=== PATIENT | female | born 1950 | race Caucasian/White ===

== ENCOUNTER 2019-04-05 21:59 | Inpatient (IN) | payer MEDICARE, MEDICAID ==
[~2019-04-05] VITALS: Ht 157.5 cm; Wt 75.3 kg
--- NOTE | 2019-04-05 22:19 | NUR ---
PT WAS BIB [facility] PET TEAM FOR AGGRESSIVE BEHAVIOR AND S/I, PT IS ON A 5150 HOLD. ALL BELONGINGS KEPT IN LOCKER FOR SAFETY, VSS, NAD NOTED, PENDING MD FLOWERS
[2019-04-05 22:39] LABS: BASOPHILS # (AUTO) 0.1 /CMM (0.0-0.2); BASOPHILS % (AUTO) 0.6 % (0.0-2.0); EOSINOPHILS % (AUTO) 0.3 % (0.0-6.0); HEMATOCRIT 39 % (33-45); HEMOGLOBIN 13.1 g/dL (11.5-14.8); LYMPHOCYTES # (AUTO) 1.7 /CMM (0.8-4.8); LYMPHOCYTES % (AUTO) 19.2 % (20.0-44.0); MEAN CORPUSCULAR HGB CONC 34 g/dl (31.0-36.0); MEAN CORPUSCULAR VOLUME 86 fL (82-100); MONOCYTES # (AUTO) 0.9 /CMM (0.1-1.30); MONOCYTES % (AUTO) 10.1 % (2.0-12.0); NEUTROPHILS # (AUTO) 6.2 /CMM (1.8-8.9); NEUTROPHILS % (AUTO) 69.8 % (43.0-81.0); PLATELET COUNT (AUTO) 184 /CMM (150-450); RED BLOOD CELL COUNT(AUTO) 4.52 MIL/uL (4.0-5.2); WHITE BLOOD COUNT (AUTO) 8.9 K/uL (4.3-11.0)
[2019-04-05 22:48] LABS: CALCIUM, SERUM 9.8 mg/dL (8.5-10.1); CARBON DIOXIDE 28 mmol/L (21-32); CHLORIDE 106 mmol/L (98-107); CREATININE 0.8 mg/dL (0.6-1.3); GLUCOSE 136 mg/dL (74-106); POTASSIUM 3.5 mmol/L (3.5-5.1); SODIUM SERUM 139 mmol/L (136-145); UREA NITROGEN, BLOOD 18 mg/dL (7-18)
[2019-04-05 22:54] LABS: ALANINE AMINOTRANSFERASE 19 U/L (12-78); ALBUMIN 3.6 g/dL (3.4-5.0); ALCOHOL, BLOOD < 3 mg/dL (0-0); ALKALINE PHOSPHATASE 73 U/L (46-116); ASPARTATE AMINOTRANSFERASE 23 U/L (15-37); BILIRUBIN,DIRECT 0.1 mg/dL (0.0-0.2); BILIRUBIN,TOTAL 0.3 mg/dL (0.2-1.0); SALICYLATE 4.8 mg/dL (2.8-20.0); TOTAL PROTEIN, SERUM 6.9 g/dL (6.4-8.2)
[2019-04-05 22:55] LABS: ACETAMINOPHEN 0 ug/ml (10-30)
--- NOTE | 2019-04-05 22:57 | NUR ---
URINE COLLECTED AND SENT TO THE LAB
[2019-04-05 23:00] LABS: APPEARANCE,URINE Clear (CLEAR); BILIRUBIN,URINE Negative (NEGATIVE); BLOOD, URINE Trace-lysed Ery/uL (NEGATIVE); COLOR,URINE Yellow (YELLOW); KETONES,URINE Negative (NEGATIVE); LEUKOCYTE ESTERASE ,URINE Negative (NEGATIVE); NITRITE, URINE Negative (NEGATIVE); PROTEIN,URINE Negative (NEGATIVE); UGLUCOSE Negative (NEGATIVE); UROBILINOGEN,URINE 0.2 EU/dL (0.2)
[2019-04-05 23:13] LABS: BACTERIA,URINE None seen /HPF (None Seen); RBC,URINE 0-2 /HPF (0-2); SQUAMOUS EPITHELIAL CELL,UR Few /HPF (None Seen); WBC,URINE 0-2 /HPF (0-3)
[2019-04-05] MEDS ORDERED: DIAZEPAM 5 MG TABLET ONE (23:43)
--- NOTE | 2019-04-05 23:52 | NUR ---
REPORT GIVEN TO NOVEM RN FOR EULALIO PT WILL BE TRANSPORTED TO GPS
[2019-04-06] MEDS ORDERED: DIAZEPAM 5 MG TABLET PO PRN
--- NOTE | 2019-04-06 00:15 | NUR ---
GPS ADMISSION NOTES: ADMITTED A 69-YR OLD FEMALE, PATIENT IS HOMELESS, ON 5150 FOR DTS/DTO. PER HOLD, PATIENT STATED SHE HAS HOMICIDAL IDEATIONS AND IS ALSO SUICIDAL SCREAMING AT DEPUTIES TO SHOOT HER. UPON FACE TO FACE ASSESSMENT, PATIENT IS ALERT AND ORIENTED X2, ANXIOUS, IRRITABLE, ANGRY, UNCOOPERATIVE, LOUD, EASILY GETS AGITATED AND SARCASTIC. VERBALIZATION OF FEELING ENCOURAGED. PT. WAS ADVISED OF THE HOLD. PT'S RIGHTS DISCUSSED GUIDE TO PRESCRIPTION MEDICATIONS PROVIDED. IN NO APPARENT DISTRESS NOTED. PATIENT REFUSED TO SIGN ADMISSION CONSENTS PT. STATED I'M EXHAUSTED I HAVE DONE TOO MUCH FOR TODAY. BELONGINGS WERE INVENTORIED AND CHECKED FOR CONTRABAND. PT IS UNDER THE PSYCHIATRIC CARE OF DR. DEN BRENNER, AND UNDER THE MEDICAL CARE OF DR. LR. SKIN BODY ASSESSMENT PERFORMED SKIN INTACT. BED LOCKED AND PLACED IN LOWEST POSITION. FALL PRECAUTIONS IN PLACE. WILL CONTINUE TO MONITOR Q15 MIN ROUNDS FOR SAFETY AND BEHAVIOR. NO FAMILY TO NOTIFY. Addendum: 04/06/19 at 0331 by DOYLE FREY RN PATIENT REFUSED TO HAVE HER BLOOD SUGAR AND VITAL SIGNS CHECK. DESPITE OF EXPLANATION RISKS AND BENEFITS BUT PATIENT STILL REFUSED.
[2019-04-06] MEDS ORDERED: MAGNESIUM HYDROXIDE 30 ML UDC PO PRN (00:30)
[2019-04-06] MEDS ORDERED: MAG HYDROX/AL HYDROX/SIMETH 30 ML UDC PO PRN (00:30)
[2019-04-06] MEDS ORDERED: ACETAMINOPHEN 325 MG TABLET PO PRN (00:30)
[2019-04-06] MEDS ORDERED: TEMAZEPAM 7.5 MG CAPSULE PO PRN (00:30)
[2019-04-06] MEDS ORDERED: BLOOD SUGAR DIAGNOSTIC 1 EACH STRIP IN ONE (00:30)
[2019-04-06] MEDS ORDERED: DULO60CA45 PO (03:43)
[2019-04-06] MEDS ORDERED: METF-440 PO (03:43)
[2019-04-06] MEDS ORDERED: IBUP-1957 PO (03:43)
[2019-04-06] MEDS ORDERED: MELO-107 PO (03:43)
[2019-04-06] MEDS ORDERED: TRAM50TA2 PO (03:43)
[2019-04-06] MEDS ORDERED: QUET50TA PO (03:43)
[2019-04-06] MEDS ORDERED: ESTR0.9T2 PO (03:43)
[2019-04-06] MEDS ORDERED: ATOR40TA PO (03:43)
--- NOTE | 2019-04-06 05:46 | NUR ---
GPS-RN PATIENT REFUSED MRSA SWAB DESPITE OF EDUCATION PROVIDED. PATIENT STILL REFUSED. WILL ENDORSE TO THE DAY SHIFT NURSE FOR CONTINUITY OF CARE.
[2019-04-06] MEDS: LORAZEPAM 0.5 MG TABLET PO PRN (06:06)
--- NOTE | 2019-04-06 06:42 | NUR ---
GPS-RN PATIENT IS VERY PARANOID. ORIGINALLY, PATIENT IS IN ROOM 219-B BUT PT. COMPLAINED OF HER ROOM MATE THAT IS VERY NOISY, RUDE, BUBBLING AND SCREAMING. PATIENT WAS MOVED TO 212-B AND PATIENT COMPLAINED AGAIN THAT HER ROOM MATE IS COUGHING, SNORING, UNHEALTHY, SNEEZING, CONTAGIOUS AND PT. ALSO STATED THAT HER ROOM MATE IS PREJUDICING HER HEALTH. PATIENT WAS AGAIN MOVED TO 211-B AND PATIENT AGAIN COMPLAINED TO HER ROOM MATE THAT SHE HAS A BAD COLD, BLOWING HER NOSE AND STARTED TO SCREAM WHEN SHE ASKED HER ROOM MATE TO FLUSH THE TOILET. SET LIMITS PROVIDED TO PATIENT. 0700 - PATIENT IS NOW IN ROOM 217-1. NO COMPLAIN AT THIS TIME. WILL CONTINUE TO MONITOR PATIENT'S SAFETY. Addendum: 04/06/19 at 0708 by DOYLE FREY RN PATIENT IS VERBALLY ABUSIVE TOWARDS STAFF, ARGUMENTATIVE, INTRUSIVE, SARCASTIC, LABILE, USES FOUL LANGUAGES TOWARDS STAFF AND INSTIGATOR. PRN ATIVAN 0.5MG PO GIVEN AT 0606. WILL ENDORSE TO THE DAY SHIFT NURSE FOR CONTINUITY OF CARE.
[2019-04-06 08:00] VITALS: BP 153/77
[2019-04-06] MEDS: NICOTINE PATCH (21MG) 21 MG PATCH.TD24 TD SCH (09:05)
[2019-04-06] MEDS: ATORVASTATIN 40 MG TABLET PO SCH (09:05)
[2019-04-06] MEDS: TRAMADOL HCL 50 MG TABLET PO SCH ×3 (09:05→17:40)
[2019-04-06] MEDS: METFORMIN 500 MG TABLET PO SCH ×2 (09:05→17:39)
[2019-04-06 11:17] LABS: CREATININE 0.8 mg/dL (0.6-1.3)
--- NOTE | 2019-04-06 11:51 | NUR ---
Patient is somewhat confused with pressured speech. Demanding and stating she came in with 3 packs of cigarette, 3 lighters, credit card, and money. According to the patient, inventory was done this morning.
[2019-04-06] MEDS ORDERED: ESTROGENS,CONJUGATED (0.3 mg) 0.3 MG TABLET PO SCH (12:00)
--- NOTE | 2019-04-06 15:57 | NUR ---
GROUP NOTE: pt unable to attend group therapy on this present day due to her aggressive behavior and lability. Pt was verbally aggressive and demanding. Pt not appropriate for a group setting at this time.
[2019-04-06 16:00] VITALS: BP 148/68
--- NOTE | 2019-04-06 16:01 | NUR ---
Patient belonging checked by Tramaine GRANT). Resting comfortably in bed at this time after shower. Will continue to monitor behavior.
--- NOTE | 2019-04-06 16:25 | NUR ---
Initial Discharge Plan: Pt currently is homeless. Pt stated that she wanted to be discharged to the streets. SW will work with the pt and the MD regarding appropriate discharge planning. SW will form a safe and proper discharge.
--- NOTE | 2019-04-06 16:27 | NUR ---
ANKIT received a call from Isidro ([phone]) from the [facility] and he stated that he does not have any information regarding the pts service dog.
--- NOTE | 2019-04-06 20:00 | NUR ---
RN GPS OPENING NOTE RECIEVED PATIENT AWAKE AND PACING THE HALLWAYS. PATIENT IS COMPLAINING ABOUT NOT HAVING ANY TOILET PAPER. PATIENT INFORMED THAT SOME WILL BE PROVIDED. PT RAISED HER VOICE AND STATED "WELL WHEN WILL THAT HAPPEN, i HAVE ALAREADY ASKED LIKE 15 TIMES. WHEN WILL I GET SOME TOILET PAPER DO I HAVE TO PAY SOMEONE TO GET SOME TOILET PAPER." PT REASSURED SOME WOULD BE PROVIDED SOON. PATIENT IN NO PHYSICAL DISTRESS BREATHING IS UNLABORED PATIENT IS ALERT AND ORIENTED X4. PATIENT IS DISORGANIZED BUT REDIRECTABLE BUT ARGUMENTATIVE. PATIENT DENIES SI AND HI AT THIS TIME. PATIENT ASKED TO WAIT FOR STAFF IN HER ROOM AND AFTER SOME TALKING SHE RETURNED TO HER ROOM. WILL CONT TO MONITOR.
[2019-04-06] MEDS: QUETIAPINE FUMARATE 100 MG TABLET PO SCH (21:23)
--- NOTE | 2019-04-06 21:30 | NUR ---
PATIENT MOVED TO 212 BED B BASED ON FOR HOSPITAL CENSUS NEEDS. PATIENT VERBALIZED UNDERSTANDING AND BEING INCONVENIENCED STATING I UNDERSTAND, BUT NOW I AM PROBABLY NOT GOING TO GET ANY SLEEP. PATIENT TRANSFERRED WITH BELONGINGS AND CONTRABAND PLACED IN NEW LOCKER.
--- NOTE | 2019-04-07 06:28 | NUR ---
lab at the bedside to draw labs. per leonardo labor operator patient is refusing to have blood drawn by the lab at this time. states she will try again later today.
[2019-04-07 08:00] VITALS: BP 119/59
[2019-04-07] MEDS ORDERED: ESTROGENS,CONJUGATED (0.3 mg) 0.3 MG TABLET PO SCH (09:00)
[2019-04-07] MEDS: CARBAMAZEPINE 200 MG TABLET PO SCH ×3 (09:55→16:55)
[2019-04-07] MEDS: NICOTINE PATCH (21MG) 21 MG PATCH.TD24 TD SCH (09:55)
--- NOTE | 2019-04-07 09:55 | NUR ---
RN NOTE: PATIENT REFUSED CARAMAZEPINE 200 MG TAB PO. RISK AND BENEFITS EXPLAINED.
[2019-04-07] MEDS: QUETIAPINE FUMARATE 100 MG TABLET PO SCH ×2 (09:57→20:30)
[2019-04-07] MEDS: METFORMIN 500 MG TABLET PO SCH ×2 (09:57→16:52)
[2019-04-07] MEDS: DULOXETINE HCL 30 MG CAPSULE.DR PO SCH (09:58)
[2019-04-07] MEDS: ATORVASTATIN 40 MG TABLET PO SCH (09:58)
[2019-04-07] MEDS: TRAMADOL HCL 50 MG TABLET PO SCH ×3 (09:58→18:24)
[2019-04-07] MEDS: MELOXICAM 7.5 MG TABLET PO SCH ×2 (09:58→16:53)
[2019-04-07 16:00] VITALS: BP 125/71
[2019-04-07 16:08] LABS: CHOLESTEROL 175 mg/dL (<200); HDL CHOLESTEROL 56 mg/dL (40-60); LDL 97 mg/dL (0-99); TRIGLYCERIDES 147 mg/dL (30-150)
--- NOTE | 2019-04-07 16:14 | NUR ---
Group Note 04/07/19: ANKIT invited patient to attend today's support group at 2 pm in the activities room regarding mindfulness. Patient was in bed and refused to attend statin, "I'm so sick, I just want to get out of here". ANKIT validated patient reason for wanting to rest. ANKIT informed patient that she is welcome to join group later if feeling better. Patient was agreeable to plan.
--- NOTE | 2019-04-07 16:55 | NUR ---
RN NOTE: PATIENT REFUSED TEGRETOL 200MG. RISK AND BENEFITS EXPLAINED.
--- NOTE | 2019-04-07 20:12 | NUR ---
GPS RN NOTE, PATIENT HAS A COMPLAINT OF COUGH, WHEEZING AND SAYS SHE HAS COPD. PATIENT ALSO STATES SHE USES ALBUTEROL INHALER. PATIENT IS WHEEZING IS WHEEZING IN ALL LUNG ROBERTS WITH A SPO2 93 %. PAGED [facility] AND INFORMED DR LR OF MY FINDINGS. DR LR ORDERED ALBUTEROL 1.25MG / 3 ML VIA NEB Q4 HR JOSÉ MIGUEL PROOFER BLACK AND WHITE AND IPRATROPIUM 0.5MG VIA NEB Q4HR JOSÉ MIGUEL PROOFER BLACK AND WHITE. ALL ORDERS NOTED AND CARRIED OUT WILL CONTINUE TO MONITOR THIS PATIENT.
[2019-04-07 20:25] VITALS: BP 147/88
[2019-04-07] MEDS: IPRATROPIUM NEB FS 0.5 MG/2.5 ML AMPUL.NEB NEB SCH ×2 (20:40→23:19)
[2019-04-07] MEDS: ALBUTEROL HALF STRENGTH 1.25 MG/3 ML VIAL.NEB NEB SCH ×2 (20:40→23:19)
[2019-04-08] MEDS: IPRATROPIUM NEB FS 0.5 MG/2.5 ML AMPUL.NEB NEB SCH ×6 (03:30→23:30)
[2019-04-08] MEDS: ALBUTEROL HALF STRENGTH 1.25 MG/3 ML VIAL.NEB NEB SCH ×6 (03:30→23:30)
[2019-04-08 08:00] VITALS: BP 116/78
[2019-04-08] MEDS: DULOXETINE HCL 30 MG CAPSULE.DR PO SCH (08:11)
[2019-04-08] MEDS: ATORVASTATIN 40 MG TABLET PO SCH (08:11)
[2019-04-08] MEDS: TRAMADOL HCL 50 MG TABLET PO SCH ×3 (08:11→17:44)
[2019-04-08] MEDS: METFORMIN 500 MG TABLET PO SCH ×2 (08:11→16:53)
[2019-04-08] MEDS: MELOXICAM 7.5 MG TABLET PO SCH ×2 (08:12→17:43)
[2019-04-08] MEDS: QUETIAPINE FUMARATE 100 MG TABLET PO SCH ×2 (08:12→19:50)
[2019-04-08] MEDS: CARBAMAZEPINE 200 MG TABLET PO SCH ×3 (08:12→16:52)
[2019-04-08] MEDS: NICOTINE PATCH (21MG) 21 MG PATCH.TD24 TD SCH (08:15)
--- NOTE | 2019-04-08 09:10 | NUR ---
Substance Abuse Use Intervention: SW conducted a substance abuse intervention with the pt regarding her alcohol and prescription abuse.
--- NOTE | 2019-04-08 15:09 | NUR ---
GROUP NOTE: SW encouraged pt to attend group on this present day to discuss "impaired reality-testing." Pt refused to attend saying she did not want to attend any groups and that if SW wasn't there to tell her that she was going to be discharged then she should just leave. Pt was verbally aggressive and labile.
--- NOTE | 2019-04-08 15:53 | NUR ---
Individual Intervention with the pt: Pts Charge Nurse, Jim, and the SW informed the pt that she cannot request a Writ Hearing without having the initial PC hearing but she stated that she is going to call [employer] and make a request sooner so that she can be released from the hospital.
[2019-04-08 15:56] VITALS: BP 110/68
--- NOTE | 2019-04-08 16:05 | NUR ---
Individual Intervention with the pt: SW and Charge Nurse realized that the information that was presented to the pt was not accurate after speaking to [employer]. SW stated that the pt did have the right to file a writ even before the initial hearing. Pt stated that she was going to make a call and request a writ and the SW stated that was within her right to do so.
--- NOTE | 2019-04-08 16:06 | NUR ---
LESLEY FROM PTS. RIGHT CALLED THAT PT. WILL FILE A WRIT OF NIDHI DUNNE AND SAID THAT SHE CAN DO A BY PASS WRIT. PT. DOESN'T WANT THE STAFF TO FILL UP THE FORM FOR THE WRIT AND SHE HERSELF FILLED UP AND STAFF FAXED IT TO THE COURT AT [phone].
--- NOTE | 2019-04-08 16:32 | NUR ---
DR. CRENSHAW MADE AWARE THAT PT. FILED A BY PASS WRIT.
[2019-04-08 19:45] VITALS: BP 97/54
[2019-04-09] MEDS: IPRATROPIUM NEB FS 0.5 MG/2.5 ML AMPUL.NEB NEB SCH ×6 (03:30→23:26)
[2019-04-09] MEDS: ALBUTEROL HALF STRENGTH 1.25 MG/3 ML VIAL.NEB NEB SCH ×6 (03:30→23:26)
[2019-04-09 08:00] VITALS: BP 115/63
[2019-04-09] MEDS: PREMARIN 0.9 MG PO SCH (08:24)
[2019-04-09] MEDS: MELOXICAM 7.5 MG TABLET PO SCH ×2 (08:24→17:03)
[2019-04-09] MEDS: CARBAMAZEPINE 200 MG TABLET PO SCH ×3 (08:24→17:00)
[2019-04-09] MEDS: DULOXETINE HCL 30 MG CAPSULE.DR PO SCH (08:24)
[2019-04-09] MEDS: QUETIAPINE FUMARATE 100 MG TABLET PO SCH ×2 (08:24→20:32)
[2019-04-09] MEDS: METFORMIN 500 MG TABLET PO SCH ×2 (08:25→17:00)
[2019-04-09] MEDS: TRAMADOL HCL 50 MG TABLET PO SCH ×3 (08:25→17:07)
[2019-04-09] MEDS: NICOTINE PATCH (21MG) 21 MG PATCH.TD24 TD SCH (08:25)
[2019-04-09] MEDS: ATORVASTATIN 40 MG TABLET PO SCH (08:25)
--- NOTE | 2019-04-09 12:26 | NUR ---
GPS/RN-NOTES PATIENT REFUSED TEGRETOL 200MG P.O DESPITE EXPLANATIONS RISK AND BENEFITS .STATED" I DON'T NEED AN EXPLANATIONS FROM YOU". PATIENT IS ANGRY AND ARGUMENTATIVE .
[2019-04-09 16:00] VITALS: BP 141/71
--- NOTE | 2019-04-09 17:08 | NUR ---
GPS/RN-NOTES PATIENT REFUSED TEGRETOL 200MG AND METFORMIN 500MG P.O DESPITE EXPLANATIONS RISK AND BENEFITS .PATIENT IS ANGRY AND ARGUMENTATIVE .STATED" I DON'T TAKE THOSE MEDICATIONS TWICE A DAY" . OFFERED X3
--- NOTE | 2019-04-09 19:30 | NUR ---
GPS RN NOTE, RECEIVED PATIENT AWAKE AND IN BED, NO S/S OR COMPLAINTS OF PAIN AT THIS TIME. PATIENT IS DISPLAYING NO S/S OF APPARENT DISTRESS AT THIS TIME. PATIENT BREATHING IS UNLABORED WITH EQUAL RISE AND FALL OF THE CHEST. PATIENT IS ALERT AND ORIENTED X 3 ON ROOM AIR WITH A SPO2 98 %. PATIENT IS COMPLIANT WITH MEDICATION, DISORGANIZED, ARGUMENTATIVE, ANXIOUS, AND COOPERATIVE. PATIENT DENIES SUICIDE IDEATIONS AND HOMICIDAL IDEATIONS AT THIS TIME. PATIENT ASSISTED WITH TURNING AND REPOSITIONING Q2 HR AND PRN FOR COMFORT AND CIRCULATION. PATIENT HAS NO NEEDS AT THIS TIME. PATIENT EDUCATED ON THE USE OF THE CALL JAMES. PATIENT BED SIDE RAILS UP X 2 FOR SAFETY, BED IS LOCKED AND LOW. WILL CONTINUE TO MONITOR Q15 MIN WITH THE HELP OF STAFF TO MAINTAIN SAFETY.
[2019-04-09 19:42] VITALS: BP_SYST 128; BP_SYST 148; BP_DIAS 82; BP_DIAS 83
--- NOTE | 2019-04-09 19:59 | NUR ---
GPS RN NOTE, PATIENT HAS A COMPLAINT OF COUGH, WHEEZING AND SAYS SHE HAS COPD. PATIENT ALSO STATES SHE IS COUGHING UP GREEN SPUTUM. PATIENT IS WHEEZING IS WHEEZING IN ALL LUNG ROBERTS WITH A SPO2 97 %. PAGED [facility] AND INFORMED DR LR OF MY FINDINGS. DR LR ORDERED CHEST X-RAY ONE VIEW AND RESPIRATORY CUL WITH GRAM STAIN. ALL ORDERS NOTED AND CARRIED OUT WILL CONTINUE TO MONITOR THIS PATIENT
[2019-04-10] MEDS: ALBUTEROL HALF STRENGTH 1.25 MG/3 ML VIAL.NEB NEB SCH ×6 (03:30→23:30)
[2019-04-10] MEDS: IPRATROPIUM NEB FS 0.5 MG/2.5 ML AMPUL.NEB NEB SCH ×6 (03:30→23:30)
[2019-04-10 08:00] VITALS: BP 120/63
[2019-04-10] MEDS: CARBAMAZEPINE 200 MG TABLET PO SCH ×3 (09:00→17:00)
[2019-04-10] MEDS: MELOXICAM 7.5 MG TABLET PO SCH ×2 (09:24→16:55)
[2019-04-10] MEDS: ATORVASTATIN 40 MG TABLET PO SCH (09:24)
[2019-04-10] MEDS: QUETIAPINE FUMARATE 100 MG TABLET PO SCH ×2 (09:24→22:48)
[2019-04-10] MEDS: NICOTINE PATCH (21MG) 21 MG PATCH.TD24 TD SCH (09:24)
[2019-04-10] MEDS: TRAMADOL HCL 50 MG TABLET PO SCH ×3 (09:25→16:56)
[2019-04-10] MEDS: METFORMIN 500 MG TABLET PO SCH ×2 (09:25→16:56)
[2019-04-10] MEDS: DULOXETINE HCL 30 MG CAPSULE.DR PO SCH (09:25)
[2019-04-10] MEDS: PREMARIN 0.9 MG PO SCH (09:26)
--- NOTE | 2019-04-10 14:51 | NUR ---
pt came into room 211 and agitated the patient in room 211-1 by offering legal advise, the attending nurse elaine lynn advised her to leave but she refused. Security was called in order to help separate the pts and she was redirected to her room.
[2019-04-10] MEDS: LORAZEPAM 0.5 MG TABLET PO PRN (16:58)
[2019-04-10 19:36] VITALS: BP 156/77
--- NOTE | 2019-04-10 21:00 | NUR ---
Patient requested to hold seroquel 100mg order until after 2229. Patient is calm and cooperative, reading a story book. Denies SI/AVH. Interacted well
--- NOTE | 2019-04-11 02:13 | NUR ---
RT NOTE PATIENT REFUSED BREATHING TREATMENT. NO SOB NOTED UPON ASSESSMENT. PATIENT WANTED TO CONTINUE SLEEPING. RN NOTIFIED. Addendum: 04/11/19 at 0215 by SERGE MCCARTNEY RT Amended: Links added.
[2019-04-11] MEDS: ALBUTEROL HALF STRENGTH 1.25 MG/3 ML VIAL.NEB NEB SCH ×6 (03:30→23:30)
[2019-04-11] MEDS: IPRATROPIUM NEB FS 0.5 MG/2.5 ML AMPUL.NEB NEB SCH ×6 (03:30→23:30)
[2019-04-11 08:00] VITALS: BP 143/71
[2019-04-11] MEDS: NICOTINE PATCH (21MG) 21 MG PATCH.TD24 TD SCH (08:38)
[2019-04-11] MEDS: TRAMADOL HCL 50 MG TABLET PO SCH ×3 (08:39→16:51)
[2019-04-11] MEDS: METFORMIN 500 MG TABLET PO SCH ×2 (08:39→16:51)
[2019-04-11] MEDS: DULOXETINE HCL 30 MG CAPSULE.DR PO SCH (08:39)
[2019-04-11] MEDS: ATORVASTATIN 40 MG TABLET PO SCH (08:40)
[2019-04-11] MEDS: QUETIAPINE FUMARATE 100 MG TABLET PO SCH ×2 (08:40→20:29)
[2019-04-11] MEDS: MELOXICAM 7.5 MG TABLET PO SCH ×2 (08:40→16:51)
[2019-04-11] MEDS: PREMARIN 0.9 MG PO SCH (08:41)
[2019-04-11] MEDS: CARBAMAZEPINE 200 MG TABLET PO SCH ×3 (08:41→16:53)
[2019-04-11 16:00] VITALS: BP 147/71
[2019-04-11 19:58] VITALS: BP 148/80
[2019-04-11] MEDS: LORAZEPAM 0.5 MG TABLET PO PRN (22:48)
--- NOTE | 2019-04-11 23:00 | NUR ---
PT AGITATED AND ANXIOUS WITH ROOMMATE. PT IS VERBALLY ABUSIVE TO ROOMMATE INCLUDING MAKING RACIAL COMMENTS. ATTEMPTED TO CALM PT AND EXPLAIN SITUATION BUT PT CONTINUED TO MAKE COMMENTS STATING "HOW DID SHE GET HERE?" "CALL THE DOCTOR TO GIVE HER A SHOT!" ATTEMPTED TO CALM PT DOWN BUT PT STATED THAT SHE WOULD NEED AN ATIVAN TO BE ABLE TO SLEEP.
[2019-04-12] MEDS: IPRATROPIUM NEB FS 0.5 MG/2.5 ML AMPUL.NEB NEB SCH ×2 (03:30→08:28)
[2019-04-12] MEDS: ALBUTEROL HALF STRENGTH 1.25 MG/3 ML VIAL.NEB NEB SCH ×2 (03:30→08:28)
[2019-04-12] MEDS: QUETIAPINE FUMARATE 100 MG TABLET PO SCH (07:30)
[2019-04-12 08:00] VITALS: BP 147/71
[2019-04-12] MEDS: NICOTINE PATCH (21MG) 21 MG PATCH.TD24 TD SCH (08:24)
[2019-04-12] MEDS: TRAMADOL HCL 50 MG TABLET PO SCH (08:24)
[2019-04-12] MEDS: ATORVASTATIN 40 MG TABLET PO SCH (08:25)
[2019-04-12] MEDS: METFORMIN 500 MG TABLET PO SCH (08:25)
[2019-04-12] MEDS: MELOXICAM 7.5 MG TABLET PO SCH (08:25)
[2019-04-12] MEDS: DULOXETINE HCL 30 MG CAPSULE.DR PO SCH (08:27)
[2019-04-12] MEDS: CARBAMAZEPINE 200 MG TABLET PO SCH (08:32)
[2019-04-12] MEDS: PREMARIN 0.9 MG PO SCH (08:32)
--- NOTE | 2019-04-12 09:15 | NUR ---
Individual Intervention: SW spoke to the pt and provided her with resources to snf facilities as well as board and care and independent living facilites. Pt stated that she was grateful for the resources and will utilize them after her hip replacement.
--- NOTE | 2019-04-12 11:22 | NUR ---
NURSING DISCHARGE NOTE: PATIENT IS A 69 Y/O FEMALE DISCHARGED TO HOME [id number] [place] [address]. PATIENT IS IN STABLE CONDITION. VSS. NO ACUTE DISTRESS NOTED. NO COMPLAINTS. COMPLIANT WITH MEDICATION MANAGEMENT. COOPERATIVE WITH PLAN OF CARE. PSYCHIATRIC TREATMENT PLANS MET. MEDICAL TREATMENT PLANS DEFERRED FOR CONTINUAL MONITORING. PER PATIENT, PATIENT DOES NOT NEED MEDICAL PRESCRIPTIONS. DENIES SI/HI VAH AT THE TIME OF DISCHARGE. SKIN INTACT. EDUCATED PATIENT ABOUT AFTERCARE WITH COPY PROVIDED. RETURNED PERSONAL BELONGINGS TO PATIENT. MEDICATIONS RECONCILED WITH DR. CRENSHAW ALONG WITH PSYCHIATRIC DISCHARGE ORDERS. PRESCRIPTIONS WERE GIVEN TO PATIENT. DISCHARGE PAPERWORK SIGNED. FOR FOLLOW UP WITH PSYCHIATRIST AND AGENT TELEGRAPHER WITHIN 1 WEEK. PATIENT LEFT THE [facility] WITH STEADY GATE. PATIENT WAS GIVEN TAP CARD. PATIENT LEFT THE UNIT AT 11:15 AM ACCOMPANIED BY STAFF TO FRONT LOBBY.
--- NOTE | 2019-04-12 11:51 | NUR ---
Discharge Note: Pt was discharged [id number] [facility] [place] [address]; (no phone number). Pt was given a TAP card at 11am. Upon discharge, the pt appeared to be in a euthymic mood and presented with a calm and mood congruent affect. Pt denied both suicidal and homicidal ideation as well as auditory and visual hallucinations. Pt was provided with homeless resources such as shelters, food harris, physical and mental health clinics, substance abuse referrals and smoking cessation referrals. Pt signed the homeless waiver upon her discharge. Pt was referred to be under the care of [facility] for psychiatric services located at [address] [place] [address], [place] [address]; ; and a fax of records was sent to: [phone]. Pt has an intake appointment on 04/13/19 at 12:30pm. Pt will also be under the care of her cardroom supervisor, Dr. Glenroy Napier, located at [address] [place] [id number]; .
== END 2019-04-12 11:15 | disposition home or self-care (01) | DRG 885 ==
LOC: ER 22:05 → GPS 23:38
PROVIDERS: ADMIT Psychiatry & Neurology Psychiatry; ATTEND Internal Medicine
DX: F31.64 Bipolar disorder, current episode mixed, severe, with psychotic features (principal); G93.40 Encephalopathy, unspecified; F23 Brief psychotic disorder; E78.5 Hyperlipidemia, unspecified; E11.9 Type 2 diabetes mellitus without complications; I10 Essential (primary) hypertension; M19.90 Unspecified osteoarthritis, unspecified site; M79.7 Fibromyalgia; R45.850 Homicidal ideations; Z59.0 Homelessness
CPT/HCPCS: 36415; 71045-TC; 80048-TC; 80061-TC; 80076-TC; 80305; 81000-TC; 82565-TC; 82962-TC; 85025-TC; 87070-TC; 87081-TC; G0480